=== PATIENT | male | born 1965 | race Caucasian/White ===

== ENCOUNTER 2018-06-20 21:12 | Emergency (ER) | payer OTHER ==
[~2018-06-20] VITALS: Ht 152.4 cm; Wt 108.9 kg
[2018-06-20] MEDS ORDERED: NORVASC10 MG (21:27)
[2018-06-20] MEDS ORDERED: ASPIRIN81 MG (21:27)
[2018-06-20] MEDS ORDERED: NOVOLIN 70100 UNIT/1 (21:28)
[2018-06-20] MEDS ORDERED: FENOFIBRATE134 MG (21:28)
[2018-06-20] MEDS ORDERED: PLAVIX75 MG (21:28)
[2018-06-20] MEDS ORDERED: METOPROLOL SUCC25 MG (21:29)
[2018-06-20] MEDS ORDERED: LEVO-T50 MCG (21:29)
[2018-06-20] MEDS ORDERED: ISOSORBIDE DINI30 MG (21:29)
[2018-06-20] MEDS ORDERED: ROSUVASTATIN CA40 MG (21:30)
[2018-06-20] MEDS ORDERED: MONTELUKAST SOD10 MG (21:30)
== END 2018-06-20 23:13 | disposition home or self-care (01) ==
LOC: ER 21:12
DX: R53.83 Other fatigue (principal); J45.998 Other asthma

== ENCOUNTER 2018-06-21 17:15 | Emergency (ER) | payer OTHER ==
[~2018-06-21] VITALS: Ht 172.7 cm; Wt 108.9 kg
[~2018-06-21 17:15] MED LIST: ASPIRIN81 MG; FENOFIBRATE134 MG; ISOSORBIDE DINI30 MG; LEVO-T50 MCG; METOPROLOL SUCC25 MG; MONTELUKAST SOD10 MG; NORVASC10 MG; NOVOLIN 70100 UNIT/1; PLAVIX75 MG; ROSUVASTATIN CA40 MG
[2018-06-22] MEDS ORDERED: FUROSEMIDE20 MG PO (08:11)
== END 2018-06-22 10:06 | disposition home or self-care (01) ==
LOC: ER 17:15
DX: I50.9 Heart failure, unspecified (principal); R53.83 Other fatigue; J45.998 Other asthma

== ENCOUNTER 2018-12-21 10:36 | Emergency (ER) | payer OTHER ==
[~2018-12-21] VITALS: Ht 172.7 cm; Wt 99.8 kg
[~2018-12-21 10:36] MED LIST changes: +FUROSEMIDE20 MG PO
[2018-12-21] MEDS ORDERED: LASIX40 MG PO (11:26)
[2018-12-21] MEDS ORDERED: CARVEDILOL12.5 MG PO (11:27)
[2018-12-21] MEDS ORDERED: AVAPRO300 MG PO (11:28)
[2018-12-21] MEDS ORDERED: LANTUS SOL100 UNIT/1 SUBCUTANEO (11:28)
[2018-12-21] MEDS ORDERED: LOVAZA1 GM PO (11:28)
== END 2018-12-21 13:26 | disposition home or self-care (01) ==
LOC: ER 10:36
DX: M54.2 Cervicalgia (principal)